=== PATIENT | male | born 1950 | race African-American/Black ===

== ENCOUNTER 2023-12-15 16:21 | Emergency (ER) | payer OTHER, MEDICARE ==
[~2023-12-15] VITALS: Ht 160 cm; Wt 54.4 kg
[2023-12-15 16:33] VITALS: BP 147/69; PULSE 98; RESP 18; TEMP 98.9; O2SAT 95
[2023-12-15] MEDS ORDERED: CLARITIN ONE (16:50)
[2023-12-15] MEDS: CLARITIN PO STA (16:53)
[2023-12-15 16:56] VITALS: BP 140/70; PULSE 90; RESP 18; O2SAT 97
== END 2023-12-15 16:55 | disposition home or self-care (01) ==
LOC: ER 16:21
DX: T78.49XA Other allergy, initial encounter (principal); E78.00 Pure hypercholesterolemia, unspecified; K21.9 Gastro-esophageal reflux disease without esophagitis; X58.XXXA Exposure to other specified factors, initial encounter
CPT/HCPCS: 99282

== ENCOUNTER 2023-12-16 09:01 | Emergency (ER) | payer OTHER, MEDICARE ==
[~2023-12-16] VITALS: Ht 160 cm; Wt 63.5 kg
[2023-12-16 09:01] VITALS: BP 143/75; PULSE 85; RESP 18; TEMP 99.1; O2SAT 98
--- NOTE | 2023-12-16 09:01 | NUR ---
ARRIVAL PATIENT ARRIVED TO [facility]BULATORY, C/O RUNNY NOSE AND COUGH SINCE YESTERDAY, WAS SEEN IN THIS ED YESTERDAY AND DX WITH ALLERGIES, TODAY PATIENT IS CONCERNED ABOUT COVID, BROUGHT TO THE ED FOR EVAL,VITAL SIGNS TAKEN AND DOCTOR NOTIFIED OF PATIENT'S ARRIVAL.
--- NOTE | 2023-12-16 09:43 | NUR ---
CRITICAL LAB NOTIFIED MARIANO OF POSITIVE COVID
[2023-12-16 09:56] VITALS: BP 115/64; PULSE 66; RESP 18; TEMP 99.1; O2SAT 98
== END 2023-12-16 10:02 | disposition home or self-care (01) ==
LOC: ER 09:01
DX: U07.1 COVID-19 (principal); K21.9 Gastro-esophageal reflux disease without esophagitis
CPT/HCPCS: 87426; 99283